=== PATIENT | female | born 1985 | race Caucasian/White ===

== ENCOUNTER 2017-02-03 06:25 | Day surgery (SDC) | payer MEDICAID ==
[~2017-02-03] VITALS: Ht 175.3 cm; Wt 89.0 kg
[2017-02-03] VITALS (8 sets, daily range): BP systolic 95–133; BP diastolic 66–82; PULSE 48–62; RESP 17–22; Ht 175.3 cm; Wt 89.0 kg
[2017-02-03] MEDS ORDERED: LACTATED RINGER'S 1,000 ML IV SCH (07:30)
[2017-02-03 08:26] LABS: BASOPHILS % 0.5 % (0.0-2.0); EOSINOPHILS # 0.2 10^3/ul (0.0-0.5); EOSINOPHILS % 2.6 % (0.0-7.0); HEMATOCRIT 38.2 % (37.0-47.0); LYMPHOCYTES # 2.2 10^3/ul (0.8-2.9); LYMPHOCYTES % 28.5 % (15.0-51.0); MEAN CORPUSCULAR HEMOGLOBIN 30.4 pg (29.0-33.0); MEAN CORPUSCULAR VOLUME 89.3 fl (82.0-101.0); MONOCYTE # 0.6 10^3/ul (0.3-0.9); MONOCYTES % 7.3 % (0.0-11.0); NEUTROPHIL # 4.6 10^3/ul (1.6-7.5); PLATELET COUNT 262 10^3/UL (140-415); RED BLOOD COUNT 4.28 10^6/ul (4.20-5.40); RED CELL DISTRIBUTION WIDTH 12.7 % (11.5-14.5); WHITE BLOOD COUNT 7.6 10^3/ul (4.8-10.8)
--- NOTE | 2017-02-03 08:31 | HP ---
Date/Time of Note Date/Time of Note DATE: 02/03/17 TIME: 08:25 Assessment/Plan VTE Prophylaxis VTE Prophylaxis Intervention: SCD's Assessment/Plan Assessment/Plan desire permanent sterilization consent for hysteroscopic tubal occlusion by essure implant possible laparoscopic tubal sterilization R/b/a explaining including but not limited to high regret rate HPI/ROS Admit Date/Time Admit Date/Time Hx of Present Illness 31 yo desires permanent sterilization. patient currently on Nexplanon implant. ROS Constitutional: improved, no complaints Eyes: no complaints ENT: no complaints Respiratory: no complaints Cardiovascular: no complaints Gastrointestinal: no complaints Genitourinary: no complaints Musculoskeletal: no complaints Skin: no complaints Neurologic: no complaints Endocrine: no complaints Lymphatic: no complaints Psychological: nl mood/affect, no complaints Immunologic: no complaints PMH/Family/Social Past Medical History Medical History: no pertinent history Past Surgical History X 3 dilation and curettage for terminatio of Family History Significant Family History: no pertinent family hx Social History Alcohol Use: none Smoking Status: Former smoker Drug Use: none Exam/Review of Systems Vital Signs Vitals Vital Signs Date Time Temp Pulse Resp B/P Pulse Ox O2 Delivery O2 Flow Rate FiO2 02/03/17 08:12 97.7 62 19 95/66 100 Room Air Exam Constitutional: alert, oriented, well developed Psych: nl mood/affect, no complaints Head: atraumatic, normocephalic Eyes: EOMI, PERRL, nl conjunctiva, nl lids, nl sclera ENMT: nl external ears & nose, nl lips & teeth, nl nasal mucosa & septum Neck: non-tender, supple Respiratory: clear to auscultation, normal air movement Cardiovascular: nl pulses, regular rate and rhythm Gastrointestinal: nl liver, spleen, non-tender, soft Genitourinary - Female: nl adnexae, nl external genitalia Musculoskeletal: nl extremities to inspection Extremities: normal pulses Neurological: ELECTRO TECH II-XII intact, nl mental status, nl speech, nl strength Skin: nl turgor, No rash or lesions Lymph: nl lymph nodes Medications Medications Current Medications Lactated Ringer's (Lr) 1,000 ml @ 0 mls/hr Q0M IV ; Start 02/03/17 at 07:30 KAY KEITH MD Feb 03, 2017 08:31
[2017-02-03] MEDS ORDERED: MIDAZOLAM 1 MG/ML 2 ML INJ ONE (09:27)
[2017-02-03] MEDS ORDERED: FENTAnyl 50 MCG/ML VIAL ONE (09:27)
[2017-02-03] MEDS ORDERED: KETOROLAC 30 MG INJ ONE (09:47)
--- NOTE | 2017-02-03 10:06 | OPPN ---
Date/Time of Note Date/Time of Note DATE: 02/03/17 TIME: 10:03 Operative Report Preoperative Diagnosis desire permanent surgical sterilization Postoperative Diagnosis same Operation/Procedure Performed Hysteroscopic tubal bilateral tubal occlusion by essure implant Provider: KAY KEITH MD Anesthesia: general Estimated blood loss: minimal Grafts/Implants Essure lot # [id number] Complications: None KAY KEITH MD Feb 03, 2017 10:06
--- NOTE | 2017-02-03 10:07 | PDOCDIS ---
Discharge Instructions CONDITION Patient Condition: Fair HOME CARE INSTRUCTIONS: Diet Instructions: Regular ACTIVITY: Activity Restrictions: No Sexual Activity Bathing Restrictions: Tub Bath FOLLOW UP/APPOINTMENTS Follow-up Plan 2 WEEKS SCHOOL/WORK RELEASE May return to School/Work on: Feb 04, 2017 May return to School/Work with: No Restrictions KAY KEITH MD Feb 03, 2017 10:07
[2017-02-03] MEDS ORDERED: ROCURONIUM 50 MG INJ ONE (10:14)
[2017-02-03] MEDS ORDERED: LIDOCAINE 2% (SDV) 5 ML INJ ONE (10:14)
[2017-02-03] MEDS ORDERED: PROPOFOL 20 ML ONE (10:14)
[2017-02-03] MEDS ORDERED: NEOSTIGMINE 3 MG/3 ML SYRINGE ONE (10:14)
[2017-02-03] MEDS ORDERED: GLYCOPYRROLATE 0.4 MG INJ ONE (10:14)
[2017-02-03] MEDS ORDERED: ONDANSETRON 4 MG INJ ONE (10:15)
[2017-02-03] MEDS ORDERED: METOCLOPRAMIDE 10 MG INJ IV PRN (10:30)
[2017-02-03] MEDS ORDERED: MEPERIDINE 25 MG INJ IV PRN (10:30)
[2017-02-03] MEDS ORDERED: ONDANSETRON 4 MG INJ IV PRN (10:30)
[2017-02-03] MEDS ORDERED: DIPHENHYDRAMINE 50 MG INJ IV PRN (10:30)
[2017-02-03] MEDS ORDERED: FENTAnyl 50 MCG/ML VIAL IV PRN (10:30)
--- NOTE | 2017-02-04 10:34 | OPR ---
DATE OF OPERATION: 02/03/2017 PRIMARY DIAGNOSIS: Desires permanent surgical sterilization. POSTOPERATIVE DIAGNOSIS: Desires permanent surgical sterilization. OPERATION PERFORMED: Hysteroscopic tubal occlusion by Essure implant, lot #[id number]. SURGEON: Dr. Timur Maharaj. PARQUET FLOOR LAYER: None. OPERATIVE FINDINGS AT SURGERY: Bimanual sides within normal. Position anteverted. Hysteroscopic view of the uterus adequate. Ostia normal. Adhesion absent. Placement of 3 trailing coils in the right and 3 trailing coils in the left. ESTIMATED BLOOD LOSS: Minimal. COMPLICATIONS: None. ANESTHESIA: General. OPERATIVE PROCEDURE: After explaining risks, benefits and alternatives and patient consent signed and on chart, the patient was taken to the operating room where general anesthesia was obtained without difficulty. The patient was then examined under anesthesia and found to have a small anteverted uterus with normal adnexa. She was then placed in the dorsal lithotomy position and prepared and draped in a sterile fashion. A heavy- weighted speculum was then placed in the patient's vagina and the anterior lip of the cervix was grasped with a single-tooth tenaculum. A hysteroscope was then entered in the uterine cavity with findings noted above. Both tubal ostia were identified. The delivery catheter was inserted into the tubal ostia up to the black markers. The delivery catheter was retracted and device deployed. After 10 seconds, the catheter was detached. The device was in good position with 3 trailing coils on the right side. The procedure was repeated on the left side with 3 trailing coils. When the procedure was completed, all instruments were removed from the patient's vagina. The patient tolerated the procedure well. All counts were correct x2. Before discharge, the patient was given a prescription for a hysterosalpingogram in 3 months. The patient is currently using the Nexplanon implant for contraception. Dictated By: Timur Maharaj MD /[email or web address] /Document#: [id number]
== END 2017-02-03 13:05 | disposition home or self-care (01) ==
LOC: SDS 06:25
PROVIDERS: ATTEND Obstetrics & Gynecology
DX: Z30.2 Encounter for sterilization (principal); E66.9 Obesity, unspecified; Z68.28 Body mass index [BMI] 28.0-28.9, adult
CPT/HCPCS: 58565; 85025; 86850; 86900; 86901; A4264; J1885; J2250; J2405; J2710; J3010; Z7512; Z7610